=== PATIENT | male | born 1955 | race African-American/Black ===

== ENCOUNTER → 2021-12-10 12:05 | Outpatient (CLI) | payer MEDICARE, OTHER, SELFPAY ==
[2021-12-10 12:42] LABS: COVID19 -Nasal RAPID Negative (Negative)
== END ==
PROVIDERS: Visit Provider Surgery
DX: Z20.822 Contact with and (suspected) exposure to COVID-19 (principal); Z01.812 Encounter for preprocedural laboratory examination
CPT/HCPCS: 87635; C9803

== ENCOUNTER 2021-12-11 06:57 | Day surgery (SDC) | payer MEDICARE, OTHER, SELFPAY ==
[2021-12-11] VITALS (7 sets, daily range): BP systolic 145–172; BP diastolic 100–116; PULSE 60–75; RESP 12–18; TEMP 36.2–36.6; O2SAT 97–100; BMI 25.7
--- NOTE | 2021-12-11 | DI.RAD.S_ITS ---
PROCEDURE: XR CHEST 1V INDICATIONS: port placement TECHNIQUE: One view of the chest was acquired. COMPARISON: None. FINDINGS: Surgical changes and devices: Left pacemaker with multiple leads. Right sided port with the catheter tip projecting at the upper 3rd of the SVC. Lungs and pleura: Lungs are clear. No pleural effusions or pneumothorax. Mediastinum: Mediastinal contours appear normal. Heart size is enlarged. Bones and chest wall: No suspicious bony lesions. Overlying soft tissues appear unremarkable. IMPRESSION: Right-sided port with the catheter tip projecting at the upper 3rd of the SVC. Dictated by: Faheem Navarrete M.D. on 12/11/2021 at 14:00 Approved by: Faheem Navarrete M.D. on 12/11/2021 at 14:01
[2021-12-11] MEDS: LACTATED RINGERS 1,000 ML 42 ML IV ×2 (07:41→13:15)
--- NOTE | 2021-12-11 08:22 | PM.HP.1 ---
History of Present Illness History of Present Illness Date Patient Seen: 12/11/21 Time Patient Seen: 08:22 Chief complaint: SDC Narrative: 66 y.o man with lymphoma here for port a cath placement. No previous indwelling venous catheters. Has right chest pacemaker. Patient History Family & Social History Social History: household members family Tobacco & Substance use: Smoking Status Former smoker alcohol intake current alcohol intake frequency holiday/special occasion Substance Use Type does not use Meds Home Medications and Allergies Home Medications Medication Instructions Recorded Confirmed Type acetazolamide 250 mg tablet 250 mg PO BID 12/09/21 12/09/21 History amlodipine 10 mg tablet 10 mg PO DAILY 12/09/21 12/11/21 History carvedilol phosphate 80 mg 80 mg PO DAILY 12/09/21 12/09/21 History capsule,[id number] multiphase (Coreg CR) clopidogrel 75 mg tablet 75 mg PO DAILY 12/09/21 12/09/21 History dabigatran etexilate 150 mg 150 mg PO BID 12/09/21 12/09/21 History capsule (Pradaxa) digoxin 250 mcg (0.25 mg) tablet 250 mcg PO DAILY 12/09/21 12/09/21 History (Digox) fluticasone propionate 230 2 puff INHALATION BID 12/09/21 12/09/21 History mcg-salmeterol 21 mcg/actuation HFA inhaler (Advair HFA) folic acid 400 mcg tablet 12/09/21 History furosemide 40 mg tablet 40 mg PO DAILY 12/09/21 12/09/21 History gemfibrozil 600 mg tablet 600 mg PO BID 12/09/21 12/09/21 History hydralazine 100 mg tablet 100 mg PO TID 12/09/21 12/11/21 History isosorbide mononitrate 60 mg 60 mg PO DAILY 12/09/21 12/09/21 History tablet,extended release 24 hr levothyroxine 112 mcg tablet 112 mcg PO DAILY 12/09/21 12/11/21 History loratadine 10 mg capsule 10 mg PO DAILY 12/09/21 12/11/21 History omega-3 acid ethyl esters 1 gram 1 cap PO DAILY 12/09/21 12/11/21 History capsule (Lovaza) potassium chloride 20 mEq oral 20 meq PO DAILY 12/09/21 12/11/21 History packet (Klor-Con) rosuvastatin 40 mg tablet (Crestor) 40 mg PO DAILY 12/09/21 12/11/21 History Allergies Allergy/AdvReac Type Severity Reaction Status Date / Time amiodarone Allergy Unknown Verified 12/11/21 07:39 atorvastatin [From Lipitor] Allergy Unknown Verified 12/11/21 07:39 niacin Allergy Unknown Verified 12/11/21 07:39 Exam Vital Signs (past 8 hours): - 12/11/21 07:53 Temperature 97.8 F Pulse Rate 75 Respiratory Rate 18 Blood Pressure 166/100 H Pulse Oximetry 100 Oxygen Delivery Method Room Air Narrative Exam Narrative: Gen-Adult man alert and oriented Chest-Non labored resp Abdomen-Soft non tender Ext-WWP Assessment & Plan Assessment and plan (1) Follicular lymphoma: Status: Acute Plan 66 y,o man with lymphoma here for port a cath placement. Technical details of the procedure were discussed. Operative risks including bleeding, infection, mechanical device failure, pneumothorax were discussed. Questions answered he is in agreement with this plan. Time Spent With Patient Critical Care time: I spent a total of [] minutes of critical care time on this patient's care today; this time is exclusive of procedural time.
[2021-12-11] MEDS: CEFAZOLIN 2 GM/20 ML SYRINGE IV (12:30)
[2021-12-11] MEDS: HEPARIN 5,000 UNIT, SODIUM CHLORIDE 0.9% 50 ML IV (12:45)
--- NOTE | 2021-12-11 12:56 | SUR.OPER ---
Supine on padded OR bed, head on pillow, arms secured on padded arm boards at <90 degrees abduction, legs uncrossed, safety belt at thigh, tape over blanket over lower legs.
[2021-12-11] MEDS: BUPIVACAINE 0.25% (PF) VIAL 30 ML INJ (13:09)
--- NOTE | 2021-12-11 13:20 | PM.OP.1 ---
Operative Date/Time/Diagnoses Date of procedure: 12/11/21 Time of procedure: 13:20 Pre-op diagnosis: venous insufficiency lymphoma Post-op diagnosis: same Procedure & Clinicians Procedure: port a cath insertion with ultrasound guidance Same procedure as scheduled: Yes Indications: venous insufficiency and lymphoma Surgeon: Isaac Resendez Click Yes if Unassisted: Yes Anesthesia Type: General Operative Notes Findings: tip of the catheter within the SVC. CXR pending Estimated Blood Loss (mL): 20 Procedure in detail: Patient was brought to the operating room placed supine on table. Bilateral lower extremity compressive devices were applied. General anesthesia was induced and he was intubated with an LMA. He was then prepped and draped in usual sterile fashion. Time-out was performed ensure the correct patient procedure necessary equipment within the operating room. He received 2 g of Ancef prior to incision. Under ultrasound guidance the right internal jugular vein was accessed under direct visualization. The guidewire was then threaded through the needle. Its placement was then confirmed using fluoroscopy. The dilator was then placed over the guidewire. The catheter was then inserted through the sheath. Placement was again confirmed with fluoroscopy. A subcutaneous pocket was made in the right chest wall. The tunneler device was used to move the catheter from the neck to the chest pocket. The port was attached after it was primed with heparined saline. The port was tested to ensure that it flushed easily and had good blood return. The port was then secured to the underlying fascia using interupted 0 Prolene suture. Hemostasis was achieved. The wound was irrigated with sterile saline. The subcutaneous tissues were reapproximated with the 3 0 Vicryl and then skin closed with 4-0 Monocryl. The skin was sealed with Dermabond. Patient tolerated procedure well. The sponge and instrument count at the end operation was correct. Patient emerged from general anesthesia was extubated and taken to the postoperative care unit in stable condition Complications: none Post-operative Condition: stable Disposition: same day surgery
[2021-12-11] MEDS: ACETAMINOPHEN 325 MG TABLET 975 MG PO (13:59)
--- NOTE | 2021-12-11 14:07 | SUR.PHASEII ---
pt given discharge instructions. pt states he understands discharge instructions. pt to be discharged with his brother. Talked at length with pt about his blood pressure and finding a primary zoo caretaker so he can get his prescriptions filled. Pt states he will follow up on his care.
== END 2021-12-11 14:17 | disposition home or self-care (01) ==
PROVIDERS: Referring Provider Surgery; Visit Provider Surgery
PROC: (CPT 36561; principal; 2021-12-11 08:45)
DX: C82.90 Follicular lymphoma, unspecified, unspecified site (principal); Z95.0 Presence of cardiac pacemaker; E03.9 Hypothyroidism, unspecified; E78.5 Hyperlipidemia, unspecified; I10 Essential (primary) hypertension; I25.10 Atherosclerotic heart disease of native coronary artery without angina pectoris
CPT/HCPCS: 36561; 71045; C1788; J0690; J1644; J2250; J2704; J3010

== ENCOUNTER → 2022-05-03 08:55 | Outpatient (CLI) | payer MEDICARE, OTHER, SELFPAY ==
--- NOTE | 2022-05-03 08:56 | DI.CT.S_ITS ---
PROCEDURE: CT CHEST ABD PEL W CON INDICATIONS: lymphoma restaging TECHNIQUE: After the administration of oral and intravenous contrast, axial sections acquired from the supraclavicular neck to the pubic symphysis. Coronal and sagittal reformats were performed. For radiation dose reduction, the following was used: automated exposure control, adjustment of mA and/or kV according to patient size. COMPARISON: [facility], CR, XR CHEST 1V, 12/11/2021, 13:08. FINDINGS: Image quality: Excellent. CHEST: Lower Neck: No enlarged lymph nodes. Thyroid: Limited visualization. Axillae: No enlarged lymph nodes. Chest Wall: Unremarkable. A Port-A-Cath is noted in the right anterior chest. Lungs and Airways: No consolidation or suspicious nodules. Pleura: No pneumothorax or pleural effusions. Heart: Heart size is moderately enlarged. No pericardial effusion. There is moderate coronary artery calcification. A cardiac pacemaker is present. Thoracic Vessels: The aorta and pulmonary arteries demonstrate normal size. Mediastinum and Lisa: There is a 1.1 cm right paratracheal lymph node. A 1 cm right hilar lymph node is noted. Esophagus: No wall thickening. There is a small hiatal hernia. Mild concentric thickening of the esophagus ABDOMEN: Liver: Unremarkable. Gallbladder: Unremarkable. Biliary ducts: Unremarkable. Pancreas: Unremarkable. Spleen: Unremarkable. Adrenal Glands: Unremarkable. Kidneys and Ureters: Unremarkable. Stomach and Bowel: Stomach, small bowel loops, and colon are normal in caliber. Diverticulosis. No acute diverticulitis. Peritoneum: No abnormal intraperitoneal fluid. No free air. Ventral Wall: No hernia. Abdominal Nodes: Retroperitoneal and mesenteric lymphadenopathy. Reference lesions are listed in the followin.0 x 2.6 cm retrocaval lymph node (series 2, image 85). 1.2 cm left para-aortic lymph node (series 2, image 89). 1.3 x 2.7 cm mesenteric lymph node is identified (series 2 image 83) There is mesenteric stranding. Vessels: Aorta and inferior vena cava are normal in size. PELVIS: Pelvic Organs: Enlarged prostate. Bladder: Bladder is contracted. Bladder appears thickened. Pelvic Nodes: No enlarged lymph nodes. Miscellaneous: No inguinal hernias are seen. Bones: Unremarkable. IMPRESSION: The examination was interpreted without the comparison CT from outside hospital. 1. There is retroperitoneal and mesenteric lymphadenopathy. The patient's prior outside CT is not available for comparison. Previous report described retroperitoneal and mesenteric lymphadenopathy. 2. Borderline enlarged mediastinal and right hilar lymph nodes are present, nonspecific. 3. Mesenteric stranding consistent with mesenteric panniculitis. 4. Small hiatal hernia. Mild concentric thickening of esophagus may be secondary to esophagitis or gastroesophageal reflux. 5. Bladder wall appears thickened. The finding may be secondary to cystitis, chronic bladder outlet obstruction or neoplasm. Recommend clinical correlation. If clinically indicated, follow-up imaging and urology consultation may be considered. 6. Enlarged prostate. Dictated by: Nini Sears M.D. on 05/03/2022 at 11:11 Approved by: Nini Sears M.D. on 05/05/2022 at 10:44
== END ==
PROVIDERS: PCP Family Medicine; Referring Provider Internal Medicine Medical Oncology; Visit Provider Internal Medicine Medical Oncology
DX: C82.90 Follicular lymphoma, unspecified, unspecified site (principal); I25.10 Atherosclerotic heart disease of native coronary artery without angina pectoris; K44.9 Diaphragmatic hernia without obstruction or gangrene; N40.0 Benign prostatic hyperplasia without lower urinary tract symptoms; Z95.0 Presence of cardiac pacemaker; R59.0 Localized enlarged lymph nodes
CPT/HCPCS: 71260; 74177; Q9967

== ENCOUNTER → 2022-06-16 15:57 | Outpatient (CLI) | payer MEDICARE, OTHER, SELFPAY ==
[2022-06-16 18:04] LABS: BUN Creatinine Ratio 12.2 (6-22); Blood Urea Nitrogen 22 mg/dL (9-20); Calcium 9.8 mg/dL (8.4-10.2); Carbon Dioxide 28 mmol/L (22-32); Chloride 108 mmol/L (98-107); Estimated Glomerular Filt Rate 40 mL/min (>60); Glucose 95 mg/dL (80-110); HEMOLYSIS < 15 (0-50); Sodium 143 mmol/L (137-145)
== END ==
PROVIDERS: PCP Family Medicine; Referring Provider Family Medicine; Visit Provider Family Medicine
DX: E78.5 Hyperlipidemia, unspecified (principal); I25.10 Atherosclerotic heart disease of native coronary artery without angina pectoris; N18.30 Chronic kidney disease, stage 3 unspecified
CPT/HCPCS: 36415; 80048

== ENCOUNTER → 2022-07-20 10:10 | Outpatient (CLI) | payer MEDICARE, OTHER, SELFPAY ==
--- NOTE | 2022-07-20 10:13 | DI.ECHO.S_ITS ---
[facility]---------+ [facility] +---------+ : : [address] : : : : [id number] : : : : Phone: [phone]+ Echocardiogram Report + + :Name: TING DE LA VEGA Study Date: 07/20/2022 Height: 77 in : :[facility] ReadingLocation: Weight: 245 lb : : Gender: Male BSA: 2.4 m2 : :: 1955 Age: 67 yrs BP: 132/100 mmHg: :Reason For Study: CARDIOMYOPATHY : :Ordering Physician: ARELI, : :TRICE Performed By: Jyotsna Barber : :Referring: TRICE MONTGOMERY : + + Interpretation Summary 1) Mildly to moderately enlarged left ventricle with moderately to severely reduced systolic function (EF 30-35%). 2) Mid to distal inferolateral wall, mid to distal anterolateral wall, mid to distal anterior wall, apex, and distal inferior wall are severely hypokinetic. Some or all of the wall motion may be due to dyssynchrony. 3) Mildly enlarged right ventricle with mildly reduced function. There is a pacemaker lead in the right ventricle. 4) No significant valvular abnormalities. 5) No prior Echo available for comparison. Procedure: A two-dimensional transthoracic echocardiogram with color flow and Doppler was performed. The study quality was technically adequate. There is no prior echocardiogram noted for this patient. The patient has a paced rhythm. The heart rate ranged between 80-87 bpm during the study. Left Ventricle: The estimated left ventricular end diastolic volume is 113 ml. There is mild concentric left ventricular hypertrophy. The left ventricle is mild-moderately dilated. The ejection fraction is estimated to be 30-35%. Mid to distal inferolateral wall, mid to distal anterolateral wall, mid to distal anterior wall, apex, and distal inferior wall are severely hypokinetic. Diastolic function could not be accurately assessed due to atrial fibrillation. Right Ventricle: The right ventricle is mildly dilated. There is a pacemaker lead in the right ventricle. Right ventricular systolic function is mildly reduced. Atria: The left atrium is severely dilated. The right atrium is severely dilated. There is a catheter/pacemaker lead seen in the right atrium. There is no Doppler evidence for an interatrial shunt. Mitral Valve: The mitral valve is normal in structure and function. There is mild mitral regurgitation. Aortic Valve: The aortic valve is trileaflet. The aortic valve is mildly calcified. There is no aortic valve stenosis. There is no aortic regurgitation. Tricuspid Valve: The tricuspid valve leaflets are thin and pliable. There is mild tricuspid regurgitation. The right ventricular systolic pressure is estimated to be at least 24 mmHg based on an estimated right atrial pressure of 3 mm Hg. Pulmonic Valve: The pulmonic valve is not well seen, but is grossly normal. There is no pulmonic valvular regurgitation. Great Vessels: The aortic root is normal size. The dimensions of the ascending aorta are normal. The IVC is of normal diameter and collapses greater than 50% with a sniff. This suggests a low right atrial pressure of 3 mm Hg. Pericardium/ Pleura There is no pericardial effusion. There is no pleural effusion. MMode/2D Measurements & Calculations LVIDd: 6.1 cm LVOT diam: 2.4 cm LVIDs: 4.2 cm Ao root diam: 3.3 cm FS: 31.3 % asc Aorta Diam: 3.4 cm EPSS: 1.8 cm Ao Arch Diam (Prox Trans): 3.4 cm IVSd: 1.2 cm LVPWd: 1.3 cm LV crow. diameter/BSA (cm/m^2): 2.5 LV sys. diameter/BSA (cm/m^2): 1.7 LA A2 area: 55.5 cm2 RA long axis: 7.9 cm LA A4 area: 44.4 cm2 RA area: 36.8 cm2 LA length (vol): 7.7 cm RA vol: 145.1 ml LA vol: 270.7 ml RA : 59.5 ml/m2 LA vol index: 111.0 ml/m2 IVC diam: 1.9 cm RVD1 (basal): 4.7 cm RVD2 (mid): 3.2 cm TAPSE: 2.3 cm Doppler Measurements & Calculations Ao V2 max: 134.3 cm/sec LVOT Max Chapo: 75.3 cm/sec Ao V2 mean: 97.3 cm/sec LV V1 max P.3 mmHg Ao max P.2 mmHg LV V1 VTI: 14.1 cm Ao mean P.3 mmHg ANNE(I,D): 2.6 cm2 Ao V2 VTI: 25.2 cm ANNE(V,D): 2.6 cm2 sev ratio: 0.56 ANNE indexed to BSA (cm^2/m^2): 1.1 MV E max chapo: 78.2 cm/sec TR max chapo: 226.3 cm/sec MV A max chapo: 2.1 cm/sec TR max P.5 mmHg MV E/A: 37.7 PA V2 max: 73.7 cm/sec Med Peak E' Chapo: 5.4 cm/sec PA V2 mean: 55.5 cm/sec E/E' med: 14.5 PA mean P.3 mmHg Lat Peak E' Chapo: 7.1 cm/sec PA pr(Accel): 29.3 mmHg E/E' lat: 11.0 E/e' average: 12.8 MV dec time: 0.12 sec SV(LVOT): 65.6 ml Reading Physician:05:11 PM
[2022-07-20 11:07] LABS: Add Manual Diff / Slide Review NO; Basophils Absolute Auto 0 /uL (0-100); Eosinophils Absolute Auto 100 /uL (0-450); Eosinophils Percent Auto 2.7 % (2-4); Hematocrit 31.1 % (41-53); Hemoglobin 10.9 g/dL (13.5-17.5); Lymphocytes Absolute Auto 900 /uL (1100-4500); Mean Corpuscular Hemoglobin 30.7 PG (26-34); Mean Corpuscular Volume 87.7 fL (80-100); Monocytes Absolute Auto 300 /uL (0-900); Monocytes Percent Auto 7.9 % (3-14); Neutrophils Absolute Auto 1900 /uL (1500-7000); Neutrophils Percent Auto 59.4 % (50-75); Platelet Count 86 X10^3/uL (150-400); Red Blood Cell Count 3.55 X10^6/uL (4.5-5.9); Red Cell Distribution Width 13.7 % (11.6-14.8); White Blood Cell Count 3.2 X10^3/uL (4.5-11.0)
[2022-07-20 11:25] LABS: BUN Creatinine Ratio 10.5 (6-22); Blood Urea Nitrogen 18 mg/dL (9-20); Calcium 9.7 mg/dL (8.4-10.2); Carbon Dioxide 28 mmol/L (22-32); Chloride 104 mmol/L (98-107); Cholesterol 229 mg/dL (140-199); Estimated Glomerular Filt Rate 42 mL/min (>60); Glucose 93 mg/dL (80-110); HDL Cholesterol 39 mg/dL (40-60); HEMOLYSIS < 15 (0-50); LDL Cholesterol Calculated 151 mg/dL (<100); Potassium 4.2 mmol/L (3.4-5.1); Sodium 140 mmol/L (137-145); Triglycerides 195 mg/dL (35-150)
== END ==
PROVIDERS: PCP Family Medicine; Referring Provider Internal Medicine Cardiovascular Disease; Visit Provider Internal Medicine Cardiovascular Disease
DX: I42.8 Other cardiomyopathies (principal); I08.1 Rheumatic disorders of both mitral and tricuspid valves; I25.10 Atherosclerotic heart disease of native coronary artery without angina pectoris; Z95.0 Presence of cardiac pacemaker
CPT/HCPCS: 36415; 80048; 80061; 85025; 93306

== ENCOUNTER 2023-02-22 13:16 | Emergency (ER) | payer MEDICARE, OTHER, SELFPAY ==
[2023-02-22] VITALS (8 sets, daily range): BP systolic 119–151; BP diastolic 83–100; PULSE 60–63; RESP 9–18; TEMP 36.4; O2SAT 93–99; BMI 26.3
[2023-02-22 14:23] LABS: Add Manual Diff / Slide Review NO; Basophils Absolute Auto 0 /uL (0-100); Eosinophils Absolute Auto 100 /uL (0-450); Eosinophils Percent Auto 2.9 % (2-4); Hematocrit 33.4 % (41-53); Hemoglobin 11.5 g/dL (13.5-17.5); Lymphocytes Absolute Auto 900 /uL (1100-4500); Lymphocytes Percent Auto 22.4 % (25-40); Mean Corpuscular HGB Conc 34.5 % (30-36); Mean Corpuscular Hemoglobin 29.9 PG (26-34); Mean Corpuscular Volume 86.8 fL (80-100); Monocytes Absolute Auto 300 /uL (0-900); Monocytes Percent Auto 7.6 % (3-14); Neutrophils Absolute Auto 2600 /uL (1500-7000); Neutrophils Percent Auto 66.1 % (50-75); Platelet Count 116 X10^3/uL (150-400); Red Blood Cell Count 3.84 X10^6/uL (4.5-5.9); Red Cell Distribution Width 13.7 % (11.6-14.8)
[2023-02-22 14:30] LABS: INR 1.3 (0.9-1.3); Prothrombin Time 15.5 SECONDS (10.1-12.7)
--- NOTE | 2023-02-22 14:31 | DI.CT.S_ITS ---
PROCEDURE: CT HEAD/BRAIN WO CON INDICATIONS: headache/ on pradaxa TECHNIQUE: Noncontrast 5 mm thick angled axial sections acquired from the foramen magnum to the vertex, with coronal and sagittal reformats. For radiation dose reduction, the following was used: automated exposure control, adjustment of mA and/or kV according to patient size. COMPARISON: None. FINDINGS: Image quality: Excellent. CSF spaces: Left-sided acute on chronic subdural hematoma measures 1.4 cm in thickness results in 7 mm midline shift. No evidence of parenchymal hemorrhage. Brain: No midline shift. No intracranial masses or hemorrhage. Belcher-white matter interface is normal. Skull and face: Calvarium and visualized facial bones are intact, without suspicious lesions. Sinuses: Visualized sinuses and mastoids are clear. IMPRESSION: Left-sided acute on chronic subdural hematoma with 7 mm midline shift. No parenchymal hemorrhage. Note: Critical results were discussed with Dr. Dexter at 02:46 PM [place] time on 02/22/23 Approved by: Deni Zurita M.D. on 02/22/2023 at 14:47
[2023-02-22 14:33] LABS: PTT Partial Thromboplastin Tim 51 SECONDS (26-36)
[2023-02-22 14:42] LABS: Erythrocyte Sedimentation Rate 18 MM/HR (0-15)
--- NOTE | 2023-02-22 14:47 | ED_ITS ---
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 Patient has complaint of headache, generalized for the past 5 weeks. Not sudden onset. It has slowly gotten worse. Is constant pain but worse with lying flat. No slurred speech or facial droop. No limb complaints. Denies any fall or injury. Related Data Home Medications Medication Instructions Recorded Confirmed levothyroxine 112 mcg tablet 112 mcg PO DAILY 12/09/21 11/23/22 evolocumab 140 mg/mL subcutaneous 140 mg SUBCUT Q2W 12/29/21 11/23/22 pen injector (Repathgreg SureZackeryick) zolpidem 10 mg tablet (Ambien) 10 mg PO BEDTIME 09/01/22 11/23/22 Previous Rx's Medication Instructions Recorded amlodipine 10 mg tablet 10 mg PO DAILY #90 tabs 05/03/22 fluticasone propionate 230 2 puff inhalation BID #12 grams 05/03/22 mcg-salmeterol 21 mcg/actuation HFA inhaler (Advair HFA) rosuvastatin 40 mg tablet (Crestor) 40 mg PO DAILY #90 tabs 05/03/22 carvedilol phosphate 80 mg 80 mg PO DAILY #90 caps 08/20/22 capsule,[id number] multiphase (Coreg CR) clopidogrel 75 mg tablet 75 mg PO DAILY #90 tabs 08/20/22 dabigatran etexilate 150 mg 150 mg PO BID #180 caps 08/20/22 capsule (Pradaxa) finasteride 5 mg tablet 5 mg PO DAILY #90 tabs 10/19/22 Allergies Allergy/AdvReac Type Severity Reaction Status Date / Time amiodarone Allergy Severe Hives Verified 02/22/23 13:47 atorvastatin [From Lipitor] Allergy Severe Hives Verified 02/22/23 13:47 niacin Allergy Severe Hives Verified 02/22/23 13:47 trazodone AdvReac Mild Headache Verified 02/22/23 13:47 Review of Systems Review of Systems Narrative: GENERAL: negative chills, fatigue, malaise, fever, sweats. HEENT: negative sinus pain, ear pain, sore throat RESPIRATORY: negative dyspnea, cough CARDIOVASCULAR: negative chest pain, palpitations GASTROINTESTINAL: negative nausea, vomiting, abdominal pain : negative dysuria, frequency, hematuria MUSCULOSKELETAL: negative muscle or bony pain SKIN: negative rash, skin lesions NEUROLOGIC: negative weakness, numbness, positive headache ROS Unobtainable: All systems reviewed & are unremarkable except as noted in HPI and below Patient History Medical History Allergies Cancer Chest pain Congestive atelectasis COPD (chronic obstructive pulmonary disease) Hyperlipidemia Hypertension Insomnia Obstructive sleep apnea Pacemaker Thyroid disease Surgical History History of coronary artery stent placement History of hernia repair Family History Mother Cancer Brother Coronary artery disease Social History marital status: number of children: 5 household members: family Smoking Status: Former smoker alcohol intake: current substance use type: does not use Smoking Status: Former smoker alcohol intake frequency: holidays/special occasions only Substance Use Type: does not use Exam Narrative Exam Narrative: GENERAL: in no distress, not toxic not dyspneic HEAD: Normocephalic. EYES: Pupils equal round ENT: Mucous membranes moist. NECK: Trachea midline. CARDIOVASCULAR: Regular rate and rhythm RESPIRATORY: Clear to auscultation. Breath sounds equal bilaterally. No wheezes, rales, or rhonchi. GASTROINTESTINAL: Abdomen soft, non-tender EXTREMITIES: No gross deformities. BACK: No flank tenderness. NEURO: AOx4. Clear speech no facial droop light touch intact bilateral face hands and strong hypertrichologist. Lifting each leg off the bed individually SKIN: Warm and dry PSYCH: Not anxious, is cooperative Initial Vital Signs Initial Vital Signs: Vital Signs Temperature 97.5 F L 02/22/23 13:41 Pulse Rate 60 02/22/23 13:41 Respiratory Rate 18 02/22/23 13:41 Blood Pressure 135/92 H 02/22/23 13:41 Pulse Oximetry 99 02/22/23 13:41 Oxygen Delivery Method Room Air 02/22/23 13:41 Course Orders Ordered: Discontinued Medications Hydromorphone HCl (Hydromorphone 1 Mg Inj) 1 mg IV NOW ONE Stop: 02/22/23 14:47 Last Admin: 02/22/23 15:20 Dose: 1 mg Documented By: ANN MARIE Hydromorphone HCl (Hydromorphone 1 Mg Inj) 1 mg IV NOW ONE Stop: 02/22/23 15:53 Last Admin: 02/22/23 16:33 Dose: 1 mg Documented By: ANN MARIE Ondansetron HCl (Ondansetron 4 Mg/2 Ml Inj) 4 mg IV NOW ONE Stop: 02/22/23 14:47 Last Admin: 02/22/23 15:06 Dose: 4 mg Documented By: ANN MARIE Vital Signs Vital signs: Vital Signs - 8 hr 02/22/23 13:41 02/22/23 14:45 02/22/23 15:38 Temperature 97.5 F L Pulse Rate 60 60 63 Respiratory Rate 18 10 L 9 L Blood Pressure 135/92 H 151/100 H Pulse Oximetry 99 99 95 Oxygen Delivery Method Room Air 02/22/23 15:45 02/22/23 16:00 02/22/23 16:08 Temperature Pulse Rate 61 63 Respiratory Rate 12 Blood Pressure 119/83 Pulse Oximetry 93 96 Oxygen Delivery Method 02/22/23 16:08 02/22/23 16:15 02/22/23 16:15 Temperature Pulse Rate 61 60 Respiratory Rate Blood Pressure 121/86 Pulse Oximetry 96 93 Oxygen Delivery Method 02/22/23 16:30 02/22/23 16:30 Temperature Pulse Rate 60 Respiratory Rate Blood Pressure 124/86 Pulse Oximetry 94 Oxygen Delivery Method MDM - Headache Lab Data 02/22/23 14:10 02/22/23 14:10 Labs: Lab Results 02/22/23 02/22/23 02/22/23 Range/Units 14:10 14:10 14:10 WBC 4.0 L (4.5-11.0) X10^3/uL RBC 3.84 L (4.5-5.9) X10^6/uL Hgb 11.5 L (13.5-17.5) g/dL Hct 33.4 L (41-53) % MCV 86.8 (80-100) fL MCH 29.9 (26-34) PG MCHC 34.5 (30-36) % RDW 13.7 (11.6-14.8) % Plt Count 116 L (150-400) X10^3/uL Neut % (Auto) 66.1 (50-75) % Lymph % (Auto) 22.4 L (25-40) % [place] % (Auto) 7.6 (3-14) % Eos % (Auto) 2.9 (2-4) % Baso % (Auto) 1.0 (0-2) % Neut # (Auto) 2600 (5731-7495) /uL Lymph # (Auto) 900 L (7513-9066) /uL [place] # (Auto) 300 (0-900) /uL Eos # (Auto) 100 (0-450) /uL Baso # (Auto) 0 (0-100) /uL ESR (0-15) MM/HR PT 15.5 H (10.1-12.7) SECONDS INR 1.3 (0.9-1.3) APTT 51 H (26-36) SECONDS Sodium 135 L (137-145) mmol/L Potassium 3.9 (3.4-5.1) mmol/L Chloride 104 (98-107) mmol/L Carbon Dioxide 27 (22-32) mmol/L BUN 18 (9-20) mg/dL Creatinine 1.71 H (0.66-1.25) mg/dL Estimated GFR 43 L (>60) mL/min BUN/Creatinine Ratio 10.5 (6-22) Glucose 132 H (80-110) mg/dL Calcium 9.4 (8.4-10.2) mg/dL Magnesium 2.1 (1.6-2.3) mg/dL Total Bilirubin 0.9 (0.2-1.3) mg/dL AST 27 (17-59) IU/L ALT 26 (<50) IU/L Alkaline Phosphatase 31 L (38-126) U/L Total Creatine Kinase 139 (55-170) U/L Troponin I < 0.012 (0.01-0.034) ng/mL C-Reactive Protein (<1.0) mg/dL Total Protein 7.5 (6.3-8.2) g/dL Albumin 3.9 (3.5-5.0) g/dL Globulin 3.6 (1.7-4.1) g/dL Albumin/Globulin Ratio 1.1 (1.0-2.8) Lipase 88 (23-300) U/L 08/01/23 08/01/23 Range/Units 14:10 14:10 WBC (4.5-11.0) X10^3/uL RBC (4.5-5.9) X10^6/uL Hgb (13.5-17.5) g/dL Hct (41-53) % MCV (80-100) fL MCH (26-34) PG MCHC (30-36) % RDW (11.6-14.8) % Plt Count (150-400) X10^3/uL Neut % (Auto) (50-75) % Lymph % (Auto) (25-40) % [place] % (Auto) (3-14) % Eos % (Auto) (2-4) % Baso % (Auto) (0-2) % Neut # (Auto) (3197-4021) /uL Lymph # (Auto) (8474-2617) /uL [place] # (Auto) (0-900) /uL Eos # (Auto) (0-450) /uL Baso # (Auto) (0-100) /uL ESR 18 H (0-15) MM/HR PT (10.1-12.7) SECONDS INR (0.9-1.3) APTT (26-36) SECONDS Sodium (137-145) mmol/L Potassium (3.4-5.1) mmol/L Chloride (98-107) mmol/L Carbon Dioxide (22-32) mmol/L BUN (9-20) mg/dL Creatinine (0.66-1.25) mg/dL Estimated GFR (>60) mL/min BUN/Creatinine Ratio (6-22) Glucose (80-110) mg/dL Calcium (8.4-10.2) mg/dL Magnesium (1.6-2.3) mg/dL Total Bilirubin (0.2-1.3) mg/dL AST (17-59) IU/L ALT (<50) IU/L Alkaline Phosphatase (38-126) U/L Total Creatine Kinase (55-170) U/L Troponin I (0.01-0.034) ng/mL C-Reactive Protein < 0.5 (<1.0) mg/dL Total Protein (6.3-8.2) g/dL Albumin (3.5-5.0) g/dL Globulin (1.7-4.1) g/dL Albumin/Globulin Ratio (1.0-2.8) Lipase (23-300) U/L Imaging Data CT scan - head: Radiologist's Impression: [address] [address] [address] Scan Report Signed Patient: Kanu Shirley MR#: [id number] : 1955 Acct:[id number] Age/Sex: 67 / M Date of Service: 02/22/23 Loc: ED Accession Number: [id number] ?? Procedure: CT head/brain wo con Ordering Provider: Darrell Dexter MD PROCEDURE:? CT HEAD/BRAIN WO CON ? INDICATIONS:? headache/ on pradaxa ? TECHNIQUE:? Noncontrast 5 mm thick angled axial sections acquired from the foramen magnum to the vertex, with coronal and sagittal reformats.? For radiation dose reduction, the following was used:? automated exposure control, adjustment of mA and/or kV according to patient size.? ? COMPARISON:? None. ? FINDINGS:? Image quality:? Excellent.? ? CSF spaces:? Left-sided acute on chronic subdural hematoma measures 1.4 cm in thickness results in 7 mm midline shift.? No evidence of parenchymal hemorrhage. ? Brain:? No midline shift.? No intracranial masses or hemorrhage.? Belcher-white matter interface is normal.? ? Skull and face:? Calvarium and visualized facial bones are intact, without suspicious lesions.? ? Sinuses:? Visualized sinuses and mastoids are clear.? ? IMPRESSION:? ? Left-sided acute on chronic subdural hematoma with 7 mm midline shift.? No parenchymal hemorrhage. ? ? Note:? Critical results were discussed with Dr. Dexter at 02:46 PM [place] time on 02/22/23 ? ? Approved by: Deni Zurita M.D. on 02/22/2023 at 14:47? [facility] Narrative Medical decision making narrative: Patient sent here from oncology services with his brother. Patient has complaint of headache, generalized for the past 5 weeks. Not sudden onset. It has slowly gotten worse. Is constant pain but worse with lying flat. No slurred speech or facial droop. No limb complaints. Denies any fall or injury. After history and exam head CT CBC CMP ESR CRP MDM CC: Headache Complicating co-morbidities: History of follicular cancer Data collected from: Patient and brother Medical records reviewed: No recent visit for this complaint Differential considered: Includes but not limited to brain cancer head bleed subdural epidural, temporal arteritis Exam documented above, pertinent findings include: Lab Test results independently reviewed as above. Pertinent findings: WBC 4.0 hemoglobin 11.5 hematocrit 33 platelets 116 INR 1.3 Imaging studies independently reviewed: CT head left-sided acute on chronic subdural hematoma with 7 mm midline shift. No parenchymal hemorrhage. EKG ventricular paced rhythm rate 60 Consultations: 3:29 p.m.. Spoke with [facility] Emergency [facility], Dr. Powell, he will accept patient. Treatments: Dilaudid Zofran Re-evaluations: 3:00 p.m.. Updated patient results of imaging. They do understand, patient and brother, need to transfer [facility]. His neurologically intact at this time. No neuro deficits. Discussion: Appropriate for transfer to [facility] for neurosurgery evaluation. Patient is protecting airway. Blood pressure is stable. Appropriate for air flight as ground transport will not occur for another 3 hours and they will be encountering heavy traffic down in [place] Diagnosis: Subdural hematoma Critical Care Time Critical Care Time Attestation: Critical Care Time 35 minutes: Critical care time is separate from other billable procedures. This critical care time includes consultation with family and other consulting doctors, review of records, and interpretation of data from labs, EKG, imaging, etc. Discharge Plan Departure Patient Disposition: [facility] Clinical Impression: Acute subdural hematoma Prescriptions: No Action amlodipine 10 mg tablet 10 mg PO DAILY Qty: 90 0RF Hold Instructions: Established with new provider Advair HFA 230-21 mcg/actuation HFA aerosol inhaler 2 puff INHALATION BID Qty: 12 0RF Hold Instructions: Established with new provider rosuvastatin [Crestor] 40 mg tablet 40 mg PO DAILY Qty: 90 0RF Hold Instructions: Established with new provider carvedilol phosphate [Coreg CR] 80 mg capsule, ER multiphase 24 hr 80 mg PO DAILY Qty: 90 0RF Hold Instructions: Established with new provider Rx Instructions: must administer with a meal/food clopidogrel 75 mg tablet 75 mg PO DAILY Qty: 90 0RF Hold Instructions: Established with new provider dabigatran etexilate [Pradaxa] 150 mg capsule 150 mg PO BID Qty: 180 0RF Hold Instructions: Established with new provider Repdavid SureClick 140 mg/mL pen injector 140 mg SUBCUT Q2W Hold Instructions: Established with new provider levothyroxine 112 mcg Tablet 112 mcg PO DAILY Hold Instructions: Established with new provider zolpidem [Ambien] 10 mg tablet 10 mg PO BEDTIME Hold Instructions: Established with new provider finasteride 5 mg tablet 5 mg PO DAILY Qty: 90 3RF Referrals: Sandeep Willis MD [Primary Care Provider] -
[2023-02-22 15:03] LABS: Alanine Aminotransferase 26 IU/L (<50); Albumin 3.9 g/dL (3.5-5.0); Albumin Globulin Ratio 1.1 (1.0-2.8); Alkaline Phosphatase 31 U/L (38-126); Aspartate Aminotransferase 27 IU/L (17-59); BUN Creatinine Ratio 10.5 (6-22); Bilirubin Total 0.9 mg/dL (0.2-1.3); Blood Urea Nitrogen 18 mg/dL (9-20); Calcium 9.4 mg/dL (8.4-10.2); Carbon Dioxide 27 mmol/L (22-32); Chloride 104 mmol/L (98-107); Creatine Kinase 139 U/L (55-170); Estimated Glomerular Filt Rate 43 mL/min (>60); Globulin 3.6 g/dL (1.7-4.1); Glucose 132 mg/dL (80-110); HEMOLYSIS < 15 (0-50); Lipase 88 U/L (23-300); Magnesium 2.1 mg/dL (1.6-2.3); Potassium 3.9 mmol/L (3.4-5.1); Sodium 135 mmol/L (137-145); Total Protein 7.5 g/dL (6.3-8.2)
[2023-02-22] MEDS: ONDANSETRON 4 MG/2 ML INJ IV (15:06)
[2023-02-22 15:15] LABS: Troponin I < 0.012 ng/mL (0.01-0.034)
[2023-02-22] MEDS: HYDROMORPHONE 1 MG INJ IV ×2 (15:20→16:33)
[2023-02-22 15:53] LABS: C-Reactive Protein Quant < 0.5 mg/dL (<1.0)
== END 2023-02-22 16:56 | disposition short-term general hospital (02) ==
PROVIDERS: Emergency Provider Emergency Medicine; PCP Family Medicine
DX: I62.00 Nontraumatic subdural hemorrhage, unspecified (principal); R07.9 Chest pain, unspecified; Z79.899 Other long term (current) drug therapy
CPT/HCPCS: 36415; 70450; 80053; 82550; 83690; 83735; 84484; 85025; 85610; 85651; 85730; 86140; 93005; 93010; 96374; 96375; 96376; 99284; J1170; J2405

== ENCOUNTER 2024-03-15 17:02 | Emergency (ER) | payer MEDICARE, OTHER, SELFPAY ==
[2024-03-15] VITALS (13 sets, daily range): BP systolic 157–196; BP diastolic 106–128; PULSE 60–89; RESP 10–18; TEMP 37.1; O2SAT 96–98; BMI 27.2
--- NOTE | 2024-03-15 17:14 | DI.RAD.S_ITS ---
PROCEDURE: XR CHEST 1V INDICATIONS: chest pain TECHNIQUE: One view of the chest was acquired. COMPARISON: [facility], CT, CT CHEST ABDOMEN PELVIS WITH CONTRAST, 05/31/2023, 9:53. [facility], CR, XR CHEST 1 VIEW, 02/13/2023, 7:10. [facility], CR, XR CHEST 1V, 12/11/2021, 13:08. FINDINGS: Surgical changes and devices: Right chest Port-A-Cath again seen with catheter tip projecting over the central portion of the contralateral left innominate vein, which appears similar when compared to prior exams. Cardiac pacemaker is seen with pulse generator in the left chest. Lungs and pleura: Lungs are clear. No pleural effusions or pneumothorax. Mediastinum: Mediastinal contours appear normal. Heart size is normal. Bones and chest wall: No suspicious bony lesions. Overlying soft tissues appear unremarkable. IMPRESSION: 1. No acute cardiopulmonary abnormality is seen. 2. Right chest Port-A-Cath again seen with catheter tip projecting over the central left innominate vein as before. Approved by: Jose Ordaz M.D. on 03/15/2024 at 17:58
--- NOTE | 2024-03-15 17:17 | EKG_ITS ---
[address] [address] [address], [place] [address] Test Date: 2024-03-15 Pat Name: Kanu Shirley Department: Room: Gender: Male Senior Budget Analyst: MIKIE : 1955 Requested By: Order Number: [id number] Reading MD: Ammon Del Real Measurements Intervals [place] Rate: 63 P: [place]: QRS: 248 QRSD: 170 T: 22 QT: 480 QTc: 491 Interpretive Statements Ventricular-paced rhythm Electronically Signed On 03-19-2024 15:16:39 PDT by Ammon Del Real
[2024-03-15 17:23] LABS: Add Manual Diff / Slide Review NO; Basophils Absolute Auto 0 /uL (0-100); Basophils Percent Auto 0.6 % (0-2); Eosinophils Absolute Auto 100 /uL (0-450); Eosinophils Percent Auto 2.1 % (2-4); Hematocrit 34.1 % (41-53); Hemoglobin 11.9 g/dL (13.5-17.5); Lymphocytes Absolute Auto 1300 /uL (1100-4500); Lymphocytes Percent Auto 37.4 % (25-40); Mean Corpuscular HGB Conc 34.8 % (30-36); Mean Corpuscular Hemoglobin 30.5 PG (26-34); Mean Corpuscular Volume 87.6 fL (80-100); Monocytes Absolute Auto 200 /uL (0-900); Monocytes Percent Auto 5.9 % (3-14); Neutrophils Absolute Auto 1900 /uL (1500-7000); Platelet Count 66 X10^3/uL (150-400); Red Blood Cell Count 3.89 X10^6/uL (4.5-5.9); Red Cell Distribution Width 14.3 % (11.6-14.8); White Blood Cell Count 3.5 X10^3/uL (4.5-11.0)
[2024-03-15 17:33] LABS: INR 1.1 (0.9-1.3); Prothrombin Time 12.5 SECONDS (9.4-12.5)
--- NOTE | 2024-03-15 17:34 | PC.NURSE ---
Patient notified this RN of fall on thinners (pradaxa) 12/13/23 @ 0100, spoke with charger operator and patient now modified trauma, provider aware
[2024-03-15 17:36] LABS: PTT Partial Thromboplastin Tim 38 SECONDS (25.1-36.5)
[2024-03-15 17:38] LABS: Alanine Aminotransferase 13 IU/L (<50); Albumin Globulin Ratio 1.4 (1.0-2.8); Alkaline Phosphatase 45 U/L (38-126); Aspartate Aminotransferase 35 IU/L (17-59); BUN Creatinine Ratio 10.8 (6-22); Bilirubin Total 0.8 mg/dL (0.2-1.3); Blood Urea Nitrogen 21 mg/dL (9-20); Calcium 9.5 mg/dL (8.4-10.2); Carbon Dioxide 25 mmol/L (22-32); Chloride 108 mmol/L (98-107); Creatine Kinase 211 U/L (55-170); Estimated Glomerular Filt Rate 37 mL/min (>60); Globulin 2.9 g/dL (1.7-4.1); Glucose 85 mg/dL (80-110); HEMOLYSIS < 15 (0-50); Lipase 75 U/L (23-300); Magnesium 2.1 mg/dL (1.6-2.3); Potassium 4.2 mmol/L (3.4-5.1); Sodium 140 mmol/L (137-145); Total Protein 6.9 g/dL (6.3-8.2)
--- NOTE | 2024-03-15 17:41 | DI.CT.S_ITS ---
PROCEDURE: CT CERVICAL SPINE WO CON INDICATIONS: fall on thinners TECHNIQUE: Noncontrast 3 mm thick sections acquired from the skull base to the T4 level. Sagittal and coronal reformats were then constructed. For radiation dose reduction, the following was used: automated exposure control, adjustment of mA and/or kV according to patient size. COMPARISON: [facility], CT, CT CHEST ABDOMEN PELVIS WITH CONTRAST, 05/31/2023, 9:53. FINDINGS: Image quality: Excellent. Bones: No acute fractures or dislocations. Visualized superior ribs are intact. Multilevel disc space narrowing degenerative endplate changes. Multilevel uncovertebral joint and facet hypertrophy. Soft tissues: Prevertebral soft tissues are normal in thickness. No paravertebral hematomas. No apical pneumothoraces. Right chest Port-A-Cath is seen with catheter tip in the contralateral left innominate vein as seen on prior exams. Cardiac pacemaker is partially imaged. Numerous bilateral cervical lymph nodes are present consistent with patient's known history of lymphoma. IMPRESSION: No acute displaced fracture or traumatic subluxation. Approved by: Jose Ordaz M.D. on 03/15/2024 at 18:21
--- NOTE | 2024-03-15 17:41 | DI.CT.S_ITS ---
PROCEDURE: CT HEAD/BRAIN WO CON INDICATIONS: fall on thinners TECHNIQUE: Noncontrast 4.5 mm thick angled axial sections acquired from the foramen magnum to the vertex, with coronal and sagittal reformats. For radiation dose reduction, the following was used: automated exposure control, adjustment of mA and/or kV according to patient size. COMPARISON: [facility], CT, CT HEAD WITHOUT CONTRAST, 06/14/2023, 8:21. [facility], CT, CT HEAD/BRAIN WO CON, 02/22/2023, 14:36. FINDINGS: Image quality: Diagnostic. CSF spaces: Basal cisterns are patent. No extra-axial fluid collections. The ventricles are symmetric in size and shape. No residual or recurrent left subdural hematoma is seen. Brain: No acute intracranial hemorrhage or mass effect. There is cerebral volume loss for age, with resultant ventricular and sulcal prominence. There are periventricular and deep white matter chronic small vessel ischemic changes. There is intracranial internal carotid artery atherosclerosis. Skull and face: Left calvarial heraclio hole cranial defects are noted. Calvarium and visualized facial bones appear intact, without suspicious lesions. Sinuses: Visualized sinuses and mastoids are clear. IMPRESSION: No acute intracranial pathology. Approved by: Jose Ordaz M.D. on 03/15/2024 at 18:18
[2024-03-15 17:49] LABS: NT-proBNP (BNP-Adult 18+) 1080 pg/mL (<125); Troponin I < 0.012 ng/mL (0.01-0.034)
--- NOTE | 2024-03-15 18:43 | ED.GENADULT ---
HPI - General Adult General Chief complaint: Syncope Stated complaint: dizzy, starts to pass out Time Seen by Provider: 03/15/24 18:05 Source: patient Mode of arrival: Ambulatory History of Present Illness HPI narrative: Patient is a 68-year-old male. Has a history of lymphoma, hypertension, is on Pradaxa. Here for evaluation of dizziness. He states that the dizziness seems to happen when he was going from a lying position to a sitting position. Initially started at approximately 0300 hours this morning when he was asleep. Can not specifically express whether or not that occurred when he was rolling over. No chest pain or shortness of breath or palpitations. He currently is not having any symptoms. No ear pain. No sore throat. No sinus congestion. He had similar symptoms to this in the past but this is when he was diagnosed with a head bleed. He has been taking all of his medications as directed. Related Data Home Medications Medication Instructions Recorded Confirmed levothyroxine 112 mcg tablet 112 mcg PO DAILY 12/09/21 11/23/22 evolocumab 140 mg/mL subcutaneous 140 mg SUBCUT Q2W 12/29/21 11/23/22 pen injector (Repatha SureClick) zolpidem 10 mg tablet (Ambien) 10 mg PO BEDTIME 09/01/22 11/23/22 Previous Rx's Medication Instructions Recorded amlodipine 10 mg tablet 10 mg PO DAILY #90 tabs 05/03/22 fluticasone propionate 230 2 puff inhalation BID #12 grams 05/03/22 mcg-salmeterol 21 mcg/actuation HFA inhaler (Advair HFA) rosuvastatin 40 mg tablet (Crestor) 40 mg PO DAILY #90 tabs 05/03/22 carvedilol phosphate 80 mg 80 mg PO DAILY #90 caps 08/20/22 capsule,[id number] multiphase (Coreg CR) clopidogrel 75 mg tablet 75 mg PO DAILY #90 tabs 08/20/22 dabigatran etexilate 150 mg 150 mg PO BID #180 caps 08/20/22 capsule (Pradaxa) finasteride 5 mg tablet 5 mg PO DAILY #90 tabs 10/19/22 Allergies Allergy/AdvReac Type Severity Reaction Status Date / Time amiodarone Allergy Severe Hives Verified 03/15/24 17:14 atorvastatin [From Lipitor] Allergy Severe Hives Verified 03/15/24 17:14 niacin Allergy Severe Hives Verified 03/15/24 17:14 trazodone AdvReac Mild Headache Verified 03/15/24 17:14 Review of Systems Review of Systems ROS Unobtainable: All systems reviewed & are unremarkable except as noted in HPI and below Patient History Medical History Pacemaker Thyroid disease COPD (chronic obstructive pulmonary disease) Congestive atelectasis Chest pain Cancer Hyperlipidemia Insomnia Allergies Obstructive sleep apnea Hypertension Surgical History History of coronary artery stent placement History of hernia repair Family History Mother Cancer Brother Coronary artery disease Social History marital status: number of children: 5 household members: family Smoking Status: Former smoker alcohol intake: current substance use type: does not use Smoking Status: Former smoker alcohol intake frequency: holidays/special occasions only Substance Use Type: does not use Exam Initial Vital Signs Initial Vital Signs: Vital Signs Temperature 98.7 F 03/15/24 17:04 Pulse Rate 83 03/15/24 17:04 Respiratory Rate 15 03/15/24 17:04 Blood Pressure 182/123 H 03/15/24 17:04 Pulse Oximetry 96 03/15/24 17:04 Oxygen Delivery Method Room Air 03/15/24 17:04 Const General: cooperative, well developed and No ill appearing HENAZ Head: normal to inspection and normocephalic Resp Effort & Inspection: normal respiratory effort Auscultation: clear to auscultation bilaterally Cardio Rate: regular rate Rhythm: regular rhythm GI Inspection: normal to inspection Skin General: no rashes or lesions noted Neuro General: patient alert, patient awake, patient oriented x3 and moves all extremities Speech: speech normal Gait: normal gait Extrem General: capillary refill normal Course Orders Ordered: ED Orders 03/15/24 17:14 XR chest 1V Stat EKG-12 Lead Stat 03/15/24 17:16 Complete Blood Count AUTO DIFF Stat Comprehensive Metabolic Panel Stat Lipase Stat Magnesium Stat NT-proBNP (BNP-Adult 18+) Stat PTT Partial Thromboplastin Bernardo Stat Prothrombin Time INR Stat Troponin & CK Cardiac Panel Stat 03/15/24 17:41 CT cervical spine wo con Stat CT head/brain wo con Stat Vital Signs Vital signs: Vital Signs - 8 hr 03/15/24 17:04 03/15/24 17:08 03/15/24 17:09 Temperature 98.7 F Pulse Rate 83 74 Pulse Rate [1730] Respiratory Rate 15 18 Respiratory Rate [1730] Blood Pressure 182/123 H 182/123 H Blood Pressure [1730] Pulse Oximetry 96 98 Pulse Oximetry [1730] Oxygen Delivery Method Room Air Oxygen Delivery Method [1730] 03/15/24 17:30 03/15/24 17:30 03/15/24 17:36 Temperature Pulse Rate 63 Pulse Rate [1730] 60 Respiratory Rate 14 Respiratory Rate [1730] 18 Blood Pressure 164/115 H Blood Pressure [1730] 164/115 H Pulse Oximetry 97 Pulse Oximetry [1730] 97 Oxygen Delivery Method Oxygen Delivery Method [1730] Room Air 03/15/24 17:57 03/15/24 17:57 03/15/24 18:00 Temperature Pulse Rate 62 60 Pulse Rate [1730] Respiratory Rate 10 L 11 L Respiratory Rate [1730] Blood Pressure 196/128 H Blood Pressure [1730] Pulse Oximetry 98 98 Pulse Oximetry [1730] Oxygen Delivery Method Oxygen Delivery Method [1730] 03/15/24 18:01 03/15/24 18:01 03/15/24 18:30 Temperature Pulse Rate 60 Pulse Rate [1730] Respiratory Rate 10 L Respiratory Rate [1730] Blood Pressure 164/119 H 173/116 H Blood Pressure [1730] Pulse Oximetry 98 Pulse Oximetry [1730] Oxygen Delivery Method Oxygen Delivery Method [1730] 03/15/24 18:30 03/15/24 18:55 03/15/24 18:55 Temperature Pulse Rate 60 89 Pulse Rate [1730] Respiratory Rate 11 L 16 Respiratory Rate [1730] Blood Pressure 165/112 H Blood Pressure [1730] Pulse Oximetry 96 97 Pulse Oximetry [1730] Oxygen Delivery Method Oxygen Delivery Method [1730] 03/15/24 19:00 03/15/24 19:00 03/15/24 19:30 Temperature Pulse Rate 67 60 Pulse Rate [1730] Respiratory Rate 10 L 12 Respiratory Rate [1730] Blood Pressure 157/106 H Blood Pressure [1730] Pulse Oximetry 97 96 Pulse Oximetry [1730] Oxygen Delivery Method Oxygen Delivery Method [1730] 03/15/24 19:33 03/15/24 19:33 Temperature Pulse Rate 60 Pulse Rate [1730] Respiratory Rate 15 Respiratory Rate [1730] Blood Pressure 161/110 H Blood Pressure [1730] Pulse Oximetry 96 Pulse Oximetry [1730] Oxygen Delivery Method Oxygen Delivery Method [1730] Medical Decision Making Lab Data Lab results reviewed: Yes I reviewed the patient's lab results. 03/15/24 17:16 03/15/24 17:16 Labs: Lab Results 03/15/24 Range/Units 17:16 WBC 3.5 L (4.5-11.0) X10^3/uL RBC 3.89 L (4.5-5.9) X10^6/uL Hgb 11.9 L (13.5-17.5) g/dL Hct 34.1 L (41-53) % MCV 87.6 (80-100) fL MCH 30.5 (26-34) PG MCHC 34.8 (30-36) % RDW 14.3 (11.6-14.8) % Plt Count 66 L (150-400) X10^3/uL Neut % (Auto) 54.0 (50-75) % Lymph % (Auto) 37.4 (25-40) % Zapata % (Auto) 5.9 (3-14) % Eos % (Auto) 2.1 (2-4) % Baso % (Auto) 0.6 (0-2) % Neut # (Auto) 1900 (2839-4263) /uL Lymph # (Auto) 1300 (8120-6543) /uL Zapata # (Auto) 200 (0-900) /uL Eos # (Auto) 100 (0-450) /uL Baso # (Auto) 0 (0-100) /uL PT 12.5 (9.4-12.5) SECONDS INR 1.1 (0.9-1.3) APTT 38 H (25.1-36.5) SECONDS Sodium 140 (137-145) mmol/L Potassium 4.2 (3.4-5.1) mmol/L Chloride 108 H (98-107) mmol/L Carbon Dioxide 25 (22-32) mmol/L BUN 21 H (9-20) mg/dL Creatinine 1.94 H (0.66-1.25) mg/dL Estimated GFR 37 L (>60) mL/min BUN/Creatinine Ratio 10.8 (6-22) Glucose 85 (80-110) mg/dL Calcium 9.5 (8.4-10.2) mg/dL Magnesium 2.1 (1.6-2.3) mg/dL Total Bilirubin 0.8 (0.2-1.3) mg/dL AST 35 (17-59) IU/L ALT 13 (<50) IU/L Alkaline Phosphatase 45 (38-126) U/L Total Creatine Kinase 211 H (55-170) U/L Troponin I < 0.012 (0.01-0.034) ng/mL NT-Pro-B Natriuret Pep 1080 H (<125) pg/mL Total Protein 6.9 (6.3-8.2) g/dL Albumin 4.0 (3.5-5.0) g/dL Globulin 2.9 (1.7-4.1) g/dL Albumin/Globulin Ratio 1.4 (1.0-2.8) Lipase 75 (23-300) U/L Imaging Data Chest x-ray: Radiologist's Impression: PROCEDURE: XR CHEST 1V INDICATIONS: chest pain TECHNIQUE: One view of the chest was acquired. COMPARISON: [facility], CT, CT CHEST ABDOMEN PELVIS WITH CONTRAST, 05/31/2023, 9:53. [facility], CR, XR CHEST 1 VIEW, 02/13/2023, 7:10. [facility], CR, XR CHEST 1V, 12/11/2021, 13:08. FINDINGS: Surgical changes and devices: Right chest Port-A-Cath again seen with catheter tip projecting over the central portion of the contralateral left innominate vein, which appears similar when compared to prior exams. Cardiac pacemaker is seen with pulse generator in the left chest. Lungs and pleura: Lungs are clear. No pleural effusions or pneumothorax. Mediastinum: Mediastinal contours appear normal. Heart size is normal. Bones and chest wall: No suspicious bony lesions. Overlying soft tissues appear unremarkable. IMPRESSION: 1. No acute cardiopulmonary abnormality is seen. 2. Right chest Port-A-Cath again seen with catheter tip projecting over the central left innominate vein as before. CT - cervical spine: Radiologist's Impression: PROCEDURE: CT CERVICAL SPINE WO CON INDICATIONS: fall on thinners TECHNIQUE: Noncontrast 3 mm thick sections acquired from the skull base to the T4 level. Sagittal and coronal reformats were then constructed. For radiation dose reduction, the following was used: automated exposure control, adjustment of mA and/or kV according to patient size. COMPARISON: [facility], CT, CT CHEST ABDOMEN PELVIS WITH CONTRAST, 05/31/2023, 9:53. FINDINGS: Image quality: Excellent. Bones: No acute fractures or dislocations. Visualized superior ribs are intact. Multilevel disc space narrowing degenerative endplate changes. Multilevel uncovertebral joint and facet hypertrophy. Soft tissues: Prevertebral soft tissues are normal in thickness. No paravertebral hematomas. No apical pneumothoraces. Right chest Port-A-Cath is seen with catheter tip in the contralateral left innominate vein as seen on prior exams. Cardiac pacemaker is partially imaged. Numerous bilateral cervical lymph nodes are present consistent with patient's known history of lymphoma. IMPRESSION: No acute displaced fracture or traumatic subluxation. CT scan - head: Radiologist's Impression: PROCEDURE: CT HEAD/BRAIN WO CON INDICATIONS: fall on thinners TECHNIQUE: Noncontrast 4.5 mm thick angled axial sections acquired from the foramen magnum to the vertex, with coronal and sagittal reformats. For radiation dose reduction, the following was used: automated exposure control, adjustment of mA and/or kV according to patient size. COMPARISON: [facility], CT, CT HEAD WITHOUT CONTRAST, 06/14/2023, 8:21. [facility], CT, CT HEAD/BRAIN WO CON, 02/22/2023, 14:36. FINDINGS: Image quality: Diagnostic. CSF spaces: Basal cisterns are patent. No extra-axial fluid collections. The ventricles are symmetric in size and shape. No residual or recurrent left subdural hematoma is seen. Brain: No acute intracranial hemorrhage or mass effect. There is cerebral volume loss for age, with resultant ventricular and sulcal prominence. There are periventricular and deep white matter chronic small vessel ischemic changes. There is intracranial internal carotid artery atherosclerosis. Skull and face: Left calvarial heraclio hole cranial defects are noted. Calvarium and visualized facial bones appear intact, without suspicious lesions. Sinuses: Visualized sinuses and mastoids are clear. IMPRESSION: No acute intracranial pathology. ECG Data Attestation: I personally reviewed and interpreted this ECG as follows: Interpretation: Ventricularly paced Rate is 63 MDM Narrative Medical decision making narrative: Patient's pacemaker was interrogated. He does have a biventricular AICD. Has had no events. No acute issues noted on the pacemaker. Patient did seem to have an episode when he was changing positions getting the CT scan. I sat the patient up and down in the exam room and he only had very minor symptoms. He ambulated around the emergency department without symptoms. Unsure of the exact etiology of the patient's symptoms but he was no signs of intracranial hemorrhage. It does not appear that this is a transient arrhythmia has nothing is showing up on his pacemaker interrogation. Low suspicion for CVA/TIA. Potentially a HEENT issue. Recommended the patient talk with his primary doctor about a referral to see ENT. No indication to change in his medications today. Will discharge patient home with instructions to follow-up with primary care provider. Discharge Plan Departure Patient Disposition: Home Clinical Impression: Dizziness Instructions: DI for Dizziness-Nonvertigo Activity Restrictions/Additional Instructions: Do recommend that you continue to take all of your medications as directed. I have also recommend that you contact your primary care doctor to discuss follow-up to discuss the indications of potential referrals to see the Ear Nose and Throat providers. Also contact your animal therapist. Return to the emergency department for new or worsening symptoms. Prescriptions: No Action amlodipine 10 mg tablet 10 mg PO DAILY Qty: 90 0RF Hold Instructions: Established with new provider Advair HFA 230-21 mcg/actuation HFA aerosol inhaler 2 puff INHALATION BID Qty: 12 0RF Hold Instructions: Established with new provider rosuvastatin [Crestor] 40 mg tablet 40 mg PO DAILY Qty: 90 0RF Hold Instructions: Established with new provider carvedilol phosphate [Coreg CR] 80 mg capsule, ER multiphase 24 hr 80 mg PO DAILY Qty: 90 0RF Hold Instructions: Established with new provider Rx Instructions: must administer with a meal/food clopidogrel 75 mg tablet 75 mg PO DAILY Qty: 90 0RF Hold Instructions: Established with new provider dabigatran etexilate [Pradaxa] 150 mg capsule 150 mg PO BID Qty: 180 0RF Hold Instructions: Established with new provider Vic Shaw 140 mg/mL pen injector 140 mg SUBCUT Q2W Hold Instructions: Established with new provider levothyroxine 112 mcg Tablet 112 mcg PO DAILY Hold Instructions: Established with new provider zolpidem [Ambien] 10 mg tablet 10 mg PO BEDTIME Hold Instructions: Established with new provider finasteride 5 mg tablet 5 mg PO DAILY Qty: 90 3RF Referrals: Sandeep Willis MD [Primary Care Provider] - Stand Alone Forms: Patient Portal/API
== END 2024-03-15 19:35 | disposition home or self-care (01) ==
PROVIDERS: Emergency Medicine; Emergency Provider Emergency Medicine; PCP Family Medicine
DX: R42 Dizziness and giddiness (principal); R07.9 Chest pain, unspecified; R55 Syncope and collapse; Z79.01 Long term (current) use of anticoagulants
CPT/HCPCS: 36415; 70450; 71045; 72125; 80053; 82550; 83690; 83735; 83880; 84484; 85025; 85610; 85730; 93005; 99284